=== PATIENT | male | born 1960 | race Caucasian/White ===

== ENCOUNTER 2017-06-29 04:57 | Emergency (ER) | payer BC, OTHER ==
[2017-06-29] MEDS ORDERED: oxyCODONE/Acetamin 5/325 MG* TAB PO ONE (05:33)
[2017-06-29 06:53] VITALS: BP 129/68
--- NOTE | 2017-06-29 09:49 | RAD ---
INDICATION: Neck pain with radiation to the RIGHT shoulder. COMPARISON: January 30, 2013 radiographs. TECHNIQUE: Multidetector CT images foramen magnum to lung apices without contrast. Multiplanar reformation. REPORT: Normal vertebral alignment accounting for exam positioning without spondylolisthesis or subluxation at any level. Negative for cervical vertebral body or posterior element fracture. Negative for paravertebral hematoma. Multilevel degenerative spondylosis and facet joint osteoarthritis. Disc space narrowing is advanced at C5-C6 and C6-C7. At C4-C5 disc bulge results in mild impression on the ventral margin of the thecal sac. At C5-C6 disc bulge and osteophyte results in mild impression on the ventral margin of the thecal sac. Uncinate process spurring and facet joint osteoarthritis results in moderate bilateral foraminal stenosis. At C6-C7 disc bulge results in mild impression on the ventral margin of the thecal sac. Rostrocaudal subluxation due to disc height loss and mild uncinate process spurring and facet joint osteoarthritis results in only slight bilateral foraminal stenosis. IMPRESSION: 1. No evidence for cervical spine fracture or subluxation. 2. Degenerative arthropathy with associated acquired spinal stenosis as described.
--- NOTE | 2017-06-29 10:25 | RAD ---
INDICATION: RIGHT shoulder, upper back, neck pain. Repetitive motion at work COMPARISON: January 29, 2010 TECHNIQUE: Dual energy PA and routine lateral views of the chest were obtained. REPORT: Clear lungs and pleural spaces. Negative for pneumothorax. The heart, pulmonary vasculature, and mediastinal contours are unremarkable. Unremarkable osseous structures and soft tissue contours. IMPRESSION: No evidence for acute intrathoracic disease.
--- NOTE | 2017-06-29 10:28 | RAD ---
Indication: RIGHT shoulder pain with worsening tendinitis. Repetitive injury. Comparison: No relevant prior exams available on the [facility] PACS for comparison. Technique: 4 views of the RIGHT shoulder Report: Negative for fracture. Normal acromioclavicular and glenohumeral joint alignment. Mild osteophytosis and small congenital or degenerative accessory ossicle at the dorsal margin of the joint. Mild osteophytic lipping at the glenohumeral joint and mild to moderate joint space narrowing. Calcific tendinopathy at the level of the supraspinatus tendon. Unremarkable soft tissue contours. IMPRESSION: Mild acromioclavicular and mild to moderate glenohumeral joint osteoarthritis. Calcific tendinopathy of the supraspinatus.
--- NOTE | 2017-06-29 11:46 | ED ---
Jose Manuel Jung Sixian, scribed for Pieter Sosa MD on 06/29/17 at 0524 . Neck Pain - HPI Summary HPI Summary: This patient is a 57 year old M presenting to ED with a chief complaint of neck and shoulder pain worsening since 0000 today. The patient rates the pain 10/10 in severity. Symptoms aggravated by movement and alleviated by lying still. Patient denies known injury, leg pain. Pt was lifting heavy objects at work on Saturday. Pt is scheduled with PCP for a MRI. 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 Complaint Chief Complaint: EDNeckComplaint Stated Complaint: NECK/RIGHT SHOULDER PAIN Time Seen by Provider: 06/29/17 05:17 Hx Obtained From: Patient Timing: Constant, Lasting Hours Onset/Duration: Gradual Onset, Started hours ago, Still Present Severity Currently: Severe Pain Intensity: 10 Pain Scale Used: 0-10 Numeric Aggravating Factors: Movement Alleviating Factors: Position - lying down - Allergies/Home Medications Allergies/Adverse Reactions: Allergies Allergy/AdvReac Type Severity Reaction Status Date / Time ibuprofen Allergy Hives Verified 06/29/17 05:08 PMH/Surg Hx/FS Hx/Imm Hx Endocrine/Hematology History: Reports: Hx Diabetes Cardiovascular History: Reports: Hx Angioplasty, Hx Hypercholesterolemia, Hx Hypertension Denies: Hx Pacemaker/ICD Respiratory History: Reports: Hx Sleep Apnea History: Denies: Hx Dialysis, Hx Renal Disease Musculoskeletal History: Reports: Hx Back Problems - chronic low back pain, Hx Orthopedic Injury - fx left ankle Sensory History: Denies: Hx Hearing Aid Neurological History: Reports: Other Neuro Impairments/Disorders - PAIN CLINIC PATIENT Psychiatric History: Denies: Hx Panic Disorder - Surgical History Surgery Procedure, Year, and Place: 2010 CARDIAC STENT. 1993 LT ANKLE SURGERY WITH PLATES AND SCREWS Infectious Disease History: No Infectious Disease History: Denies: Traveled Outside the [place] in Last 30 Days - Family History Known Family History: Positive: Cardiac Disease, Diabetes - Social History Alcohol Use: None Substance Use Type: Reports: None Smoking Status (MU): Never Smoked Tobacco Have You Smoked in the Last Year: No Review of Systems Negative: Fever Musculoskeletal: Negative - LE pain , Other - neck and shoulder pain All Other Systems Reviewed And Are Negative: Yes Physical Exam - Summary Physical Exam Summary: General: well-appearing, no pain distress Skin: warm, color reflects adequate perfusion, dry Head: normal Eyes: EOMI, JARETH ENT: normal Neck: supple, Tender to palpation at right lateral neck, Decreased ROM secondary to pain Respiratory: CTA, breath sounds present Cardiovascular: RRR Abdomen: soft, nontender Bowel: present Musculoskeletal: normal, strength/ROM intact, 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 - Radiology CXR Radiology Interpretation Completed By: ED Physician - NAD. Pending radiologist reading. Shoulder XR Radiology Interpretation Completed By: ED Physician - No fracture, no dislocation. Pending radiologist reading. - CT neck CT Interpretation Completed By: Radiologist - CT neck reveals mild central canal narrowing at C3-4 and C4-5 T2 central disc herniations. Mild central canal and bilateral neural foraminal narrowing at C5-6 due to bulging disc osteophyte complex. Mild central canal narrowing at C6-7 secondary to bulging disc osteophyte complex. ED physician has reviewed this radiology report. Neck Course/Dx - Course Course Of Treatment: BP noted and advised to follow up with PCP. Medications reviewed. Allergies noted. PAIN DECREASED IN ED AFTER PERCOCET PO. DISCUSSED IMAGING RESULTS WITH PATIENT AND . NO NEURO DEFICIT IN ED. F/U PMD; RETURN IF WORSE. - Diagnoses Provider Diagnoses: HTN (hypertension), Neck pain, Shoulder pain, right Discharge - Sign-Out/Discharge Documenting (check all that apply): Discharge - Discharge Plan Condition: Stable Disposition: HOME Prescriptions: oxyCODONE/Acetamin 5/325 MG* [Percocet 5/325 TAB*] 1 tab PO Q4H PRN #30 tab MDD 6 PRN Reason: Pain Patient Education Materials: Shoulder Pain (ED), Acute Neck Pain (ED) Referrals: El Collins III, COMMUNITY HEALTH COORDINATOR [Primary Care Provider] - Additional Instructions: FOLLOW UP WITH YOUR DOCTOR. RETURN TO THE EMERGENCY DEPARTMENT FOR ANY WORSENING OF YOUR CONDITION OR QUESTIONS OR CONCERNS. YOUR BLOOD PRESSURE WAS ELEVATED TODAY; FOLLOW UP WITH YOUR PRIMARY CARE DOCTOR WITHIN ONE WEEK. - Billing Disposition and Condition Condition: STABLE Disposition: HOME The documentation as recorded by the Jose Manuel braun Sixian accurately reflects the service I personally performed and the decisions made by me, Pieter Sosa MD.
== END 2017-06-29 07:01 | disposition home or self-care (01) ==
LOC: ED 04:57
DX: I10 Essential (primary) hypertension (principal); M25.511 Pain in right shoulder; M54.2 Cervicalgia
CPT/HCPCS: 71046; 72125; 99283; A9270-GY

== ENCOUNTER 2018-08-20 11:15 | Day surgery (SDC) | payer BC, OTHER ==
[~2018-08-20 11:15] MED LIST: Acetaminophen TAB* 325 MG PO PRN; Buffered Lidocaine 1% SYRIN* 1 ML/SYRINGE INTRADERM ONE
[2018-08-20] MEDS ORDERED: acetaZOLAMIDE TAB* 250 MG ONE (13:21)
[2018-08-20] MEDS ORDERED: Lidocaine 1%* 5 ML VIAL ONE (13:21)
[2018-08-20] MEDS ORDERED: Phenylephrine OPHTH SOL 2.5%* 2 ML ONE (13:21)
[2018-08-20] MEDS ORDERED: Lidocaine 2% EPI 1:200000 MPF*10-20 ML VIAL ONE (13:21)
[2018-08-20] MEDS ORDERED: Povidone Iodine 5% OPTH* 30 ML BTL ONE (13:21)
[2018-08-20] MEDS ORDERED: Ketorolac 0.5% OPHTH (NF) 0.5 % 5 ML BTL ONE (13:21)
[2018-08-20] MEDS ORDERED: Proparacaine 0.5% OPHTH.SOL* 15 ML BTL ONE (13:21)
[2018-08-20] MEDS ORDERED: Neomycin/Polymy/Dex OPTH.SUSP* MAXITROL 0.1% 5 ML ONE (13:21)
[2018-08-20] MEDS ORDERED: Cyclopentolate 1% OPTH.SOL* 2 ML BTL ONE (13:21)
[2018-08-20] MEDS ORDERED: fentaNYL* 50 MCG/ML 2 ML VIAL (100 MCG VIAL) ONE (13:26)
[2018-08-20] MEDS ORDERED: Midazolam* 1 MG/ML 2 ML VIAL (2 MG) ONE ×2 (13:26→13:27)
[2018-08-20 14:20] VITALS: BP 131/69
--- NOTE | 2018-08-20 14:39 | OP ---
DATE OF OPERATION: 08/20/18 - [facility] DATE OF : 56 SURGEON: Kavin Shaikh M.D. PREOPERATIVE DIAGNOSIS: Cataract, right eye. POSTOPERATIVE DIAGNOSIS: Cataract, right eye. OPERATIVE PROCEDURE: Extracapsular cataract extraction with intraocular lens implant right eye. DESCRIPTION OF PROCEDURE: The patient was brought to the operating room after being given 1/2% Alcaine with epinephrine drops in the preoperative area. The eye was prepped and draped in the usual sterile fashion. Sterile drape and eyelid speculum were placed. Again, topical 1/2% Alcaine with epinephrine was given. A paracentesis incision was made at the 9 o'clock position with the No.75 blade. Clear cornea incision 2.2 x 2.2-mm was created at the 12 o'clock position starting at the anterior limbus using the 2.2-mm keratome. The anterior chamber was irrigated with 0.4 mL of 1% non-preservative intracameral lidocaine and filled with DisCoVisc. A capsulorrhexis was completed using the cystotome and the Utrata forceps. Hydrodissection was performed with balanced salt solution. The lens nucleus was removed with the Phacoemulsification handpiece without incident. Cortex was removed with the irrigation-aspiration handpiece. The capsular bag was re-inflated using DisCoVisc and an [id number] 20 implant was inserted with the shooter. The pupil was very small, and a Malyugin ring was used to dilate the pupil prior to capsulorrhexis and removed after insertion of the lens. The irrigation-aspiration handpiece was used to remove all residual DisCoVisc. The eye was refilled with balanced salt solution and the wound checked and found to be watertight. Topical Maxitrol drops were given. Indication for complex cataract surgery: Pupil abnormalities requiring pupil dilation device. [id number]/[facility] #: [id number] BRENNA[place]
== END 2018-08-20 14:29 | disposition home or self-care (01) ==
LOC: OREAST 11:15
PROVIDERS: ATTEND Specialist
DX: H25.811 Combined forms of age-related cataract, right eye (principal); H21.561 Pupillary abnormality, right eye; E11.9 Type 2 diabetes mellitus without complications; Z79.84 Long term (current) use of oral hypoglycemic drugs; Z79.4 Long term (current) use of insulin; I10 Essential (primary) hypertension; E78.00 Pure hypercholesterolemia, unspecified; Z95.5 Presence of coronary angioplasty implant and graft; Z87.891 Personal history of nicotine dependence; G47.33 Obstructive sleep apnea (adult) (pediatric); I25.10 Atherosclerotic heart disease of native coronary artery without angina pectoris
CPT/HCPCS: A9270-GY; J2250; J3010; V2632

== ENCOUNTER 2018-09-03 09:10 | Day surgery (SDC) | payer BC, OTHER ==
[~2018-09-03 09:10] MED LIST changes: -Acetaminophen TAB* 325 MG PO PRN
[2018-09-03] MEDS ORDERED: Midazolam* 1 MG/ML 2 ML VIAL (2 MG) ONE ×2 (11:09→11:23)
[2018-09-03 11:43] VITALS: BP 127/64
--- NOTE | 2018-09-03 12:01 | OP ---
OPERATIVE NOTE: DATE OF OPERATION: 09/03/18 DATE OF : 56 SURGEON: Kavin Shaikh M.D. PREOPERATIVE DIAGNOSIS: Cataract, left eye POSTOPERATIVE DIAGNOSIS: Cataract, left eye OPERATIVE PROCEDURE: Extracapsular cataract extraction with intraocular lens implant left eye. PROCEDURE: The patient was brought to the operating room after being given 1/2% Alcaine with epineph rine drops in the preoperative area. The eye was prepped and draped in the usual sterile fashion. S terile drape and eyelid speculum were placed. Again, topical 1/2% Alcaine with epinephrine was given . A paracentesis incision was made at the 3 o'clock position with the No.75 blade. Clear cornea inc ision 2.2 x 2.2-mm was created at the 6 o'clock position starting at the anterior limbus using the 2. 2-mm keratome. The anterior chamber was irrigated with 0.4 mL of 1% non-preservative intracameral li docaine and filled with DisCoVisc. A capsulorrhexis was completed using the cystotome and the Utrata forceps. Hydrodissection was performed with balanced salt solution. The lens nucleus was removed wi th the Phacoemulsification handpiece without incident. Cortex was removed with the irrigation-aspira tion handpiece. The capsular bag was re-inflated using DisCoVisc and an SN60WF 20.5 implant was inse rted with the shooter. The pupils only 4 mm so a Malyugin ring was used to dilate the pupil prior to capsulorrhexis and removed after insertion of the lens. The irrigation-aspiration handpiece was used to remove all residual DisCoVisc. The eye was refilled with balanced salt solution and the wound dc cked and found to be watertight. Topical Maxitrol drops were given. Indication for complex cataract surgery: Pupil abnormalities requiring pupil dilation device. [id number]/[facility] #: [id number]
[2018-09-03] MEDS ORDERED: Lidocaine 1%* 5 ML VIAL ONE (12:12)
[2018-09-03] MEDS ORDERED: Cyclopentolate 1% OPTH.SOL* 2 ML BTL ONE (12:12)
[2018-09-03] MEDS ORDERED: Lidocaine 2% EPI 1:200000 MPF*10-20 ML VIAL ONE (12:12)
[2018-09-03] MEDS ORDERED: acetaZOLAMIDE TAB* 250 MG ONE (12:12)
[2018-09-03] MEDS ORDERED: Phenylephrine OPHTH SOL 2.5%* 2 ML ONE (12:12)
[2018-09-03] MEDS ORDERED: Ketorolac 0.5% OPHTH (NF) 0.5 % 5 ML BTL ONE (12:12)
[2018-09-03] MEDS ORDERED: Povidone Iodine 5% OPTH* 30 ML BTL ONE (12:12)
[2018-09-03] MEDS ORDERED: Proparacaine 0.5% OPHTH.SOL* 15 ML BTL ONE (12:12)
[2018-09-03] MEDS ORDERED: Neomycin/Polymy/Dex OPTH.SUSP* MAXITROL 0.1% 5 ML ONE (12:12)
== END 2018-09-03 11:51 | disposition home or self-care (01) ==
LOC: OREAST 09:10
PROVIDERS: ATTEND Specialist
DX: H25.812 Combined forms of age-related cataract, left eye (principal); H21.561 Pupillary abnormality, right eye; E11.9 Type 2 diabetes mellitus without complications; Z79.4 Long term (current) use of insulin; Z79.84 Long term (current) use of oral hypoglycemic drugs; Z87.891 Personal history of nicotine dependence; E78.00 Pure hypercholesterolemia, unspecified; I10 Essential (primary) hypertension; Z95.5 Presence of coronary angioplasty implant and graft; G47.33 Obstructive sleep apnea (adult) (pediatric); I25.10 Atherosclerotic heart disease of native coronary artery without angina pectoris
CPT/HCPCS: A9270-GY; J2250; V2632